=== PATIENT | female | born 1960 | race Hispanic/Latino ===

== ENCOUNTER 2016-09-21 11:21 | Observation (INO) | payer MEDICAID ==
[~2016-09-21] VITALS: Ht 165.1 cm; Wt 91.0 kg
[~2016-09-21 11:21] MED LIST: ASPIRIN CHEWABL81 MG PO; ASPIRIN325 MG PO; ATIVAN0.5 MG OR; ATIVAN0.5 MG PO; ATORVASTATIN CA20 MG PO; BACTRIM DS1 TAB PO; BENADRYL 50MG C50 MG PO; BETIMOL0.5 % OU; BLOOD GLUCOSE TEST S SC; BRIMONIDINE0.2 % OU; CELEXA10 MG PO; CELEXA20 MG PO; CIPROFLOXACIN500 M1 PO; CIPROFLOXACN500 MG PO; CITALOPRAM20 MG PO; CLIMARA0.1 MG TD; CLINDAMYCIN HC150 MG PO; CLONAZEPAM0.5 MG PO; CLONAZEPAM1 MG OR; CLONAZEPAM1 MG PO; CORTISPORIN OTI10 ML AS; CRESTOR5 MG OR; DOXYCYCL HYC100 MG PO; DULERA1 AE1 IN; ENALAPRIL2.5 MG OR; EXTRA STRENGTH500 MG; FLONASE NASAL50 MCG; FLORASTOR250 M1 PO; FLUTICASONE50 MCG; GABAPENTIN100 MG PO; KEFLEX500 MG PO; LASIX 20 MG20 MG/TAB PO; LASIX20 MG PO; LISINOPRIL20 MG PO; LISINOPRIL40 MG PO; LISINOPRIL5 MG PO; LOPRESSOR12.5 MG PO; LOPRESSOR50 M1 PO; MECLIZINE25 MG PO; MEDDOSEPAK PO; METOCLOPRAM10 MG PO; METRONIDAZOLE500 MG PO; MEVACOR10 MG PO; MIRAPEX0.125 MG PO; NASACORT A55 MCG/ACT NAB; NEURONTIN100 MG PO; NEURONTIN400 MG PO; NEXIUM40 M1 PO; NITROFURANTOIN100 M1 PO; NITROGLYCER0.4 MG SL; NITROSTAT0.4 MG SL; NORCO1 TA2 PO; OMEPRAZOLE40 MG PO; ONDANSETRON4 MG PO; ONETOUCH DELICA30 G SC; PEPCID20 MG PO; PLAVIX75 MG PO; PRAVASTATIN SOD20 MG PO; PRAVASTATIN20 MG PO; PRILOSEC40 MG PO; PROAIR HFA IN; SEROQUEL50 MG OR; SERTRALINE25 MG PO; TRAMADOL HCL50 MG PO; VENLAFAXINE H37.5 MG PO; ZANTAC150 M1 OR; ZOFRAN4 MG/TAB PO
--- NOTE | 2016-09-21 11:39 | NUR ---
PT TO ROOM FOR EXAM
--- NOTE | 2016-09-21 12:06 | NUR ---
PT RESTING QUIETLY ON STRETCHER, WITH FAMILY AT BEDSIDE. NO PAIN AT THIS TIME
[2016-09-21 12:08] LABS: HEMATOCRIT 41.5 % (37.0-47.0); HEMOGLOBIN 13.7 g/dl (12.0-16.0); IMMATURE GRANULOCYTES 0.4 % (0.0-1.0); MEAN CELL VOLUME 96.1 fL CALC (80.0-100.0); MEAN CORPUSCULAR HGB 31.7 pG CALC (26.0-32.0); NEUT# 4.29 thou/uL (2.00-7.15); RED BLOOD COUNT 4.32 mill/uL (4.20-5.60); RED CELL DISTRI WIDTH 12.9 % (11.5-15.5)
[2016-09-21 12:23] LABS: ALBUMIN 4.2 g/dL (3.2-5.0); ALKALINE PHOSPHATASE 118 u/l (38-126); AMYLASE 70 u/l (30-110); ANION GAP 17 (6-22 (CALC)); BILIRUBIN, TOTAL 0.7 mg/dL (0.0-1.4); BUN 13 mg/dL (7-17); BUN/CREATININE RATIO 21 (12-20 (CALC)); CARBON DIOXIDE 27 mmol/l (22-30); CHLORIDE 102 mmol/l (95-108); CREATININE 0.6 mg/dL (0.5-1.0); GFR > 60 ML/MIN (>=60 (CALC)); GFR FOR AFR.AMER. > 60 ML/MIN (>=60 (CALC)); GLUCOSE 137 mg/dL (65-105); LIPASE 62 u/l (23-300); POTASSIUM 3.8 mmol/l (3.5-5.1); SGOT/AST 31 u/l (14-36); SGPT/ALT 38 u/l (9-52); SODIUM 142 mmol/l (137-146); TOTAL PROTEIN 7.9 g/dL (6.3-8.2)
[2016-09-21 12:34] LABS: MYOGLOBIN 30 ng/mL (0 - 62)
--- NOTE | 2016-09-21 12:50 | NUR ---
SBAR PRINTED TO [id number] AT 1250.
--- NOTE | 2016-09-21 13:20 | NUR ---
DR FERRER AT [facility] TO DISCUSS RESULTS AND FINDINGS.
[2016-09-21] MEDS ORDERED: ATORVASTATIN CA40 MG PO (13:35)
--- NOTE | 2016-09-21 13:50 | NUR ---
REPORT PROVIDED TO NICHOLAS REEVES
--- NOTE | 2016-09-21 14:07 | NUR ---
PT TRANSPORTED TO [facility] IN STABLE CONDITION VIA STRETCHER. BELONGINGS SENT WITH PT TO ROOM 288
[2016-09-21 14:51] VITALS: BP 142/65
[2016-09-21 15:27] VITALS: BP 116/47
--- NOTE | 2016-09-21 15:30 | NUR ---
NITRO DRIP STARTED AT THIS TIME TO #22 TO RAC; B/P READING 114/47; PT STATES PAIN IS 7 OUT OF 10 ON THE PAIN SCALE; WILL CONTINUE TO MONITOR
--- NOTE | 2016-09-21 16:00 | NUR ---
PT C/O CP RATING 8 OUT OF 10; NTG RATE INCREASED TO 10MCG/MIN; B/P READING 107/48; PT DENIES ANY OTHER NEEDS AT THIS TIME; TELE IN PLACE; CALL LIGHT WITHIN REACH ;WILL CONTINUE TO MONITOR
--- NOTE | 2016-09-21 17:45 | NUR ---
PT C/O UNRELIEVED C/P; NTG RATE INCREASED TO 15MCG/MIN; B/P READING 104/55; FAMILY AT BEDSIDE; PT C/O FEELING NUMBNESS IN LOWER EXTREMITIES; PT STATES SHE HAS HAD SYMPTOMS PREVIOUSLY AND THEY COME AND GO; DR DEAL NOTIFIED AND NO NEW ORDERS RECIEVED; TRANSFER TO [facility] PENDING; CALL JOHN JORDAN; WILL CONTINUE TO MONITOR
--- NOTE | 2016-09-21 18:46 | NUR ---
PT LEAVING WITH [facility] TRANSPORT TO [facility]; PT IN STABLE CONDITION
--- NOTE | 2016-09-21 18:50 | NUR ---
Discharge instructions given. Patient verbalizes understanding of same. Discharged in stable condition via Medical Transport to *Other with staff. All belongings sent with pt.
--- NOTE | 2016-09-21 18:58 | NUR ---
REPORT CALLED TO NICHOLAS PAREDES AT [facility]
== END 2016-09-21 18:48 | disposition short-term general hospital (02) | DRG 303 ==
LOC: ED 11:21 → ED-I 12:36 → ED 12:45 → MS2 12:46
PROVIDERS: Emergency Medicine; ADMIT Internal Medicine; ATTEND Internal Medicine
DX: I25.110 Atherosclerotic heart disease of native coronary artery with unstable angina pectoris (principal); I10 Essential (primary) hypertension; F32.9 Major depressive disorder, single episode, unspecified; I25.2 Old myocardial infarction; E78.5 Hyperlipidemia, unspecified; M15.9 Polyosteoarthritis, unspecified; F41.9 Anxiety disorder, unspecified; R00.1 Bradycardia, unspecified; Z86.73 Personal history of transient ischemic attack (TIA), and cerebral infarction without residual deficits; Z87.891 Personal history of nicotine dependence; Z95.5 Presence of coronary angioplasty implant and graft
CPT/HCPCS: G0378; J1650

== ENCOUNTER 2018-04-26 14:10 | Emergency (ER) | payer OTHER ==
[~2018-04-26] VITALS: Ht 165.1 cm; Wt 100.2 kg
[~2018-04-26 14:10] MED LIST changes: +ATORVASTATIN CA40 MG PO
[2018-04-26] MEDS ORDERED: ISOSORB MONO30 MG PO (14:28)
[2018-04-26] MEDS ORDERED: METFORMIN500 MG PO (14:29)
[2018-04-26] MEDS ORDERED: ESCITALOPRAM OX10 MG PO (14:29)
[2018-04-26 15:14] LABS: HEMATOCRIT 39.2 % (37.0-47.0); IMMATURE GRANULOCYTES 0.3 % (0.0-5.0); MEAN CELL VOLUME 96.3 fL CALC (80.0-100.0); MEAN CORPUSCULAR HGB 31.9 pG CALC (26.0-32.0); MEAN CORPUSCULAR HGB CONC 33.2 g/L CALC (32.0-36.0); NEUT# 4.29 thou/uL (2.00-7.15); RED BLOOD COUNT 4.07 mill/uL (4.20-5.60); RED CELL DISTRI WIDTH 13.2 % (11.5-15.5)
[2018-04-26 15:21] LABS: ALKALINE PHOSPHATASE 82 u/l (38-126); ANION GAP 13 (6-22 (CALC)); BILIRUBIN, TOTAL 0.6 mg/dL (0.0-1.4); BUN 12 mg/dL (7-17); BUN/CREATININE RATIO 24 (12-20 (CALC)); CARBON DIOXIDE 26 mmol/l (22-30); CHLORIDE 107 mmol/l (95-108); CREATININE 0.5 mg/dL (0.5-1.0); GFR > 60 ML/MIN (>=60 (CALC)); GFR FOR AFR.AMER. > 60 ML/MIN (>=60 (CALC)); SGOT/AST 33 u/l (14-36); SODIUM 143 mmol/l (137-146); TOTAL PROTEIN 7.2 g/dL (6.3-8.2)
[2018-04-26 15:33] LABS: MYOGLOBIN 28 ng/mL (0 - 62)
[2018-04-26 16:07] LABS: URINE BILIRUBIN - DIPSTICK NEGATIVE (NEGATIVE); URINE BLOOD DIPSTICK NEGATIVE (NEGATIVE); URINE COLOR YELLOW; URINE GLUCOSE - DIPSTICK NEGATIVE (NEGATIVE); URINE KETONE NEGATIVE (NEGATIVE); URINE LEUK ESTERASE NEGATIVE (NEGATIVE); URINE NITRITE - DIPSTICK NEGATIVE (Negative); URINE PROTEIN - DIPSTICK NEGATIVE (NEG-TRACE)
[2018-04-26 16:12] LABS: URINE CLARITY CLEAR
[2018-04-26] MEDS ORDERED: ANTIVERT PO ×2 (16:20→16:46)
[2018-04-26 16:38] VITALS: BP 158/64
== END 2018-04-26 16:45 | disposition home or self-care (01) ==
LOC: ED 14:10
PROVIDERS: Emergency Medicine
DX: S09.90XA Unspecified injury of head, initial encounter (principal); I10 Essential (primary) hypertension; E11.9 Type 2 diabetes mellitus without complications; W18.39XA Other fall on same level, initial encounter; Y92.009 Unspecified place in unspecified non-institutional (private) residence as the place of occurrence of the external cause; R04.2 Hemoptysis; R06.02 Shortness of breath; M54.9 Dorsalgia, unspecified; R07.9 Chest pain, unspecified; R51 Headache

== ENCOUNTER 2018-11-09 14:09 | Emergency (ER) | payer SELFPAY ==
[~2018-11-09] VITALS: Ht 165.1 cm; Wt 85.0 kg
[~2018-11-09 14:09] MED LIST changes: +ANTIVERT PO; +ESCITALOPRAM OX10 MG PO; +ISOSORB MONO30 MG PO; +METFORMIN500 MG PO
--- NOTE | 2018-11-09 14:25 | NUR ---
PT. INTUBATED WITH 8.[address] HARVEY TUBE SECURED AT 22@ LIP. BS ARE EQUAL. COLOR CHANGE ON ETCO2 DETECTOR. XRAY HERE FOR XRAY.
[2018-11-09 14:34] LABS: GFR > 60 ML/MIN (>=60 (CALC)); GFR FOR AFR.AMER. > 60 ML/MIN (>=60 (CALC))
[2018-11-09 14:47] LABS: HEMATOCRIT 44.2 % (37.0-47.0); HEMOGLOBIN 14.4 g/dl (12.0-16.0); IMMATURE GRANULOCYTES 0.4 % (0.0-5.0); MEAN CELL VOLUME 96.5 fL CALC (80.0-100.0); MEAN CORPUSCULAR HGB 31.4 pG CALC (26.0-32.0); MEAN CORPUSCULAR HGB CONC 32.6 g/L CALC (32.0-36.0); NEUT# 5.13 thou/uL (2.00-7.15); RED BLOOD COUNT 4.58 mill/uL (4.20-5.60); RED CELL DISTRI WIDTH 13.3 % (11.5-15.5)
[2018-11-09 14:55] LABS: ACT PARTIAL THROMBO TIME 27.9 SECONDS (20.0-32.5); PROTHROMBIN TIME 10.2 SECONDS (9.0-12.5)
[2018-11-09 15:00] LABS: ALBUMIN 4.6 g/dL (3.2-5.0); ALKALINE PHOSPHATASE 75 u/l (38-126); ANION GAP 19 (6-22 (CALC)); BILIRUBIN, TOTAL 0.6 mg/dL (0.0-1.4); BUN 14 mg/dL (7-17); BUN/CREATININE RATIO 22 (12-20 (CALC)); CARBON DIOXIDE 25 mmol/l (22-30); CHLORIDE 105 mmol/l (95-108); CREATININE 0.6 mg/dL (0.5-1.0); GFR > 60 ML/MIN (>=60 (CALC)); GFR FOR AFR.AMER. > 60 ML/MIN (>=60 (CALC)); POTASSIUM 4.3 mmol/l (3.5-5.1); SGOT/AST 29 u/l (14-36); SODIUM 145 mmol/l (137-146); TOTAL PROTEIN 8.2 g/dL (6.3-8.2)
[2018-11-09 15:10] LABS: MYOGLOBIN 25 ng/mL (0 - 62)
[2018-11-09 15:12] VITALS: BP 157/87
== END 2018-11-09 15:12 | disposition short-term general hospital (02) | DRG 66 ==
LOC: ED 14:09
PROVIDERS: Emergency Medicine
PROC: 0BH17EZ Insertion of Endotracheal Airway into Trachea, Via Natural or Artificial Opening (ICD-10-PCS; principal; 2018-11-09)
DX: I63.9 Cerebral infarction, unspecified (principal); I50.9 Heart failure, unspecified; R29.734 NIHSS score 34; R07.9 Chest pain, unspecified; R53.1 Weakness; R41.82 Altered mental status, unspecified; I10 Essential (primary) hypertension; E11.9 Type 2 diabetes mellitus without complications; Z79.82 Long term (current) use of aspirin; Z79.02 Long term (current) use of antithrombotics/antiplatelets; Z79.84 Long term (current) use of oral hypoglycemic drugs; R00.0 Tachycardia, unspecified; R06.02 Shortness of breath

== ENCOUNTER 2020-06-13 15:58 | Emergency (ER) | payer OTHER ==
[~2020-06-13] VITALS: Ht 162.6 cm; Wt 105.0 kg
[~2020-06-13 15:58] MED LIST changes: +CELEXA40 M1 PO; +CETIRIZINE10 MG PO; +K-TAB20 MEQ PO; +LEVOTHYROXIN50 MCG PO; +VITAMIN D2400 UNIT PO
[2020-06-13 16:56] VITALS: BP 161/72
== END 2020-06-13 16:47 | disposition left against medical advice (07) ==
LOC: ED 15:58
DX: R07.9 Chest pain, unspecified (principal); I10 Essential (primary) hypertension; E11.9 Type 2 diabetes mellitus without complications; Z79.84 Long term (current) use of oral hypoglycemic drugs; Z91.19 Patient's noncompliance with other medical treatment and regimen

== ENCOUNTER 2021-10-24 11:32 | Emergency (ER) | payer OTHER ==
[2021-10-24] VITALS (8 sets, daily range): BP systolic 120–165; BP diastolic 54–85
[~2021-10-24] VITALS: Ht 162.6 cm; Wt 95.0 kg
[2021-10-24 12:08] LABS: HEMATOCRIT 44.9 % (37.0-47.0); HEMOGLOBIN 14.1 g/dl (12.0-16.0); IMMATURE GRANULOCYTES 0.3 % (0.0-5.0); MEAN CELL VOLUME 99.3 fL CALC (80.0-100.0); MEAN CORPUSCULAR HGB 31.2 pG CALC (26.0-32.0); MEAN CORPUSCULAR HGB CONC 31.4 g/dL CAL (32.0-36.0); NEUT# 4.76 thou/uL (2.00-7.15); RED BLOOD COUNT 4.52 mill/uL (4.20-5.60); RED CELL DISTRI WIDTH 12.8 % (11.5-15.5)
[2021-10-24 12:14] LABS: GFR > 60 ML/MIN (>=60 (CALC)); GFR FOR AFR.AMER. > 60 ML/MIN (>=60 (CALC))
[2021-10-24 12:31] LABS: ALBUMIN 4.4 g/dL (3.2-5.0); ALKALINE PHOSPHATASE 108 u/l (38-126); ANION GAP 11 (6-22 (CALC)); BUN 14 mg/dL (8-23); BUN/CREATININE RATIO 23 (12-20 (CALC)); CARBON DIOXIDE 28 mmol/l (22-30); CHLORIDE 103 mmol/l (95-108); CREATININE 0.6 mg/dL (0.5-1.0); GFR > 60 ML/MIN (>=60 (CALC)); GFR FOR AFR.AMER. > 60 ML/MIN (>=60 (CALC)); LIPASE 115 u/l (23-300); POTASSIUM 4.4 mmol/l (3.5-5.1); SGOT/AST 30 u/l (9-36); SODIUM 138 mmol/l (137-146); TOTAL PROTEIN 8.1 g/dL (6.3-8.2)
[2021-10-24 12:35] LABS: BILIRUBIN, TOTAL 0.6 mg/dL (0.0-1.4)
[2021-10-24 12:38] LABS: URINE BILIRUBIN - DIPSTICK NEGATIVE (NEGATIVE); URINE BLOOD DIPSTICK TRACE-INTACT (NEGATIVE); URINE COLOR YELLOW; URINE GLUCOSE - DIPSTICK NEGATIVE (NEGATIVE); URINE KETONE NEGATIVE (NEGATIVE); URINE LEUK ESTERASE NEGATIVE (NEGATIVE); URINE NITRITE - DIPSTICK NEGATIVE (Negative); URINE PROTEIN - DIPSTICK NEGATIVE (NEG-TRACE); URINE SPECIFIC GRAVITY <=1.005; URINE UROBILINOGEN - DIPSTICK 0.2 E.U./dL (0.2)
[2021-10-24] MEDS ORDERED: LORTAB 5/3255 MG PO (15:26)
[2021-10-24] MEDS ORDERED: MIRALAX17 GM/SCOO PO (15:27)
== END 2021-10-24 16:33 | disposition home or self-care (01) ==
LOC: ED 11:32
PROVIDERS: Family Medicine
DX: K59.00 Constipation, unspecified (principal); L90.0 Lichen sclerosus et atrophicus; I10 Essential (primary) hypertension; E11.9 Type 2 diabetes mellitus without complications; Z95.5 Presence of coronary angioplasty implant and graft; Z79.84 Long term (current) use of oral hypoglycemic drugs; Z91.041 Radiographic dye allergy status

== ENCOUNTER → 2022-01-04 10:31 | Emergency (ER) | payer OTHER ==
[~2022-01-04] VITALS: Ht 162.6 cm; Wt 86.0 kg
[~2022-01-04 10:31] MED LIST changes: +LORTAB 5/3255 MG PO; +MIRALAX17 GM/SCOO PO
[2022-01-04 10:56] VITALS: BP 149/65
[2022-01-04 11:31] VITALS: BP 145/80
== END | disposition home or self-care (01) | DRG 951 ==
LOC: ED 10:31 → LWOBS 10:31
DX: Z53.21 Procedure and treatment not carried out due to patient leaving prior to being seen by health care provider (principal)